=== PATIENT | male | born 1955 | race Caucasian/White ===

== ENCOUNTER 2016-05-16 03:53 | Inpatient (IN) | payer OTHER ==
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
--- NOTE | ~2016-05-16 | EKG ---
PATIENT: FATUMA BALL UNIT #: [id number] Ventricular Rate: 75 BPM Atrial Rate: 75 BPM P-R Interval: 198 ms QRS Duration: 90 ms Q-T Interval: 426 ms QTC Calculation(Bezet): 475 ms P Mobile: 76 degrees Calculated R Mobile: 49 degrees Calculated T Mobile: 37 degrees Diagnosis Line: Normal sinus rhythm Diagnosis Line: Nonspecific T wave abnormality Diagnosis Line: Abnormal ECG Diagnosis Line: When compared with ECG of 16-MAY-2016 03:28, Diagnosis Line: (unconfirmed) Diagnosis Line: No significant change was found Diagnosis Line: Confirmed by PAYAM NGUYEN MD ([id number]) on 05/16/2016 Diagnosis Line: 5:23:44 PM INTERPRETING MD: PATRICK ANAYA
--- NOTE | ~2016-05-16 | CR72 ---
[facility] A Service of [facility] & [facility] RADIOLOGY TEXT RESULTS PATIENT: FATUMA BALL LOCATION: [facility] 548-01 : 55 UNIT #: [id number] AGE: [address]: Henrique Mcallister MD SEX: M ORDER DR: [id number] [facility] [address]. [place], [place] [address] [id number] I MR#: [id number] Acc #: [id number] NAME: FATUMA BALL : 1955 SEX: M STUDY DATE/TIME: 05/16/2016 3:24 UNIT: [facility] ROOM: 68111 STUDY DESCRIPTION: CR Chest Single View Portable Attending Physician: Henrique Mcallister M.D. Ordering Physician: Cosme Roberto D.O. Primary Care Physician: No Primary Care Physician MEDICAL IMAGING REPORT This report is preliminary unless electronic signature is present EXAM Portable chest 05/16/2016 at 03:35 hours. INDICATIONS Headache and shortness of air that started 3 days ago. TECHNIQUE AP portable chest. COMPARISON 01/11/2016. FINDINGS Cardiomegaly stable. Vascularity normal. Lungs are clear. No pneumothorax. IMPRESSION Stable cardiomegaly. No active disease. Dictated by... Levy Alcantara Jr., M.D. THIS IS AN ELECTRONICALLY VERIFIED REPORT Levy Alcantara Jr., M.D. at 05/19/2016 7:20 AM RLK/tung TD: 05/16/2016 08:25 JOB #: [id number] MEDICAL IMAGING REPORT COPY
--- NOTE | ~2016-05-16 | CR72 ---
[facility] A Service of [facility] & [facility] RADIOLOGY TEXT RESULTS PATIENT: FATUMA BALL LOCATION: [facility] 548-01 : 55 UNIT #: [id number] AGE: [address]: Henrique Mcallister MD SEX: M ORDER DR: [id number] [facility] [address] [facility] [place] [facility]. [place], [place] [address] [id number] I MR#: [id number] Acc #: [id number] NAME: FATUMA BALL : 1955 SEX: M STUDY DATE/TIME: 05/18/2016 5:28 UNIT: [facility] ROOM: [facility] STUDY DESCRIPTION: CR Chest Single View Portable Attending Physician: Henrique Mcallister M.D. Ordering Physician: Henrique Mcallister M.D. Primary Care Physician: Primary Care Physician No MEDICAL IMAGING REPORT This report is preliminary unless electronic signature is present EXAM AP portable chest 05/18/2016 HISTORY 61-year-old male status post hospital admission 05/16/2016 complaining of 2-day history of shortness of air, cough and body aches. Follow up cardiopulmonary status. TECHNIQUE AP portable chest x-ray. FINDINGS Exam shows no active disease in the chest. Minimal cardiomegaly stable. Pulmonary vascularity is normal. The lungs are clear. No pleural effusion. No change since 05/16/2016. IMPRESSION No active disease. Dictated by... Fransisco Barboza M.D. THIS IS AN ELECTRONICALLY VERIFIED REPORT Fransisco Barboza M.D. at 05/18/2016 3:06 PM PATIENCE/isidro TD: 05/18/2016 12:19 JOB #: [id number] MEDICAL IMAGING REPORT COPY
--- NOTE | ~2016-05-16 | CO ---
Unit #: [id number] #: [id number] Patient: FATUMA BALL [id number] [facility] [address] [facility] [place], [place] [address] [id number] MR#: [id number] NAME: FATUMA BALL ROOM: 548 Age: 61 Sex: M Admission Date: 05/16/2016 : 1955 Attending Physician: Henrique Mcallister M.D. CONSULTATION REPORT REASON FOR CONSULTATION Ischemic cardiomyopathy and a known patient of Dr. Vasquez. HISTORY OF PRESENT ILLNESS This is a 60-year-old male who follows with Dr. Vasquez and last seen in office on 05/02/2016 and presented to the [facility] ER where he was seen and examined with worsening shortness of breath and a cough, headache, and joint pain, and reports this has been going on for 3 days. PAST MEDICAL HISTORY Nonischemic cardiomyopathy with chronic systolic heart failure with EF of 15%, chronic kidney disease, diabetes, COPD, tobacco abuse, asthma, hypotension, and some PVCs. He reports he has decreased his smoking from 2 to 2-1/2 packs a day down to 2 to 3 cigarettes for the last month to month and a half. Previous cardiac testing includes an echo on 12/27/2015, which showed an EF of 15%, mild to moderate MR and TR, moderately reduced RV function, and mild dilated left atrium, and moderately enlarged right atrium and an RVSP of 38 mmHg. He had a left heart cath on 01/01/2016, which showed normal left main, normal LAD, normal left circ with a mid RCA lesion of about 50%. Chest x-ray on 05/16/2016 was done and also an EKG on 05/16/2016 showed normal sinus rhythm. He does complain of chronic increased coughing, which is mostly dry in nature. He has orthopnea. Apparently, he reports to me that he does take all his medicines as prescribed. However, upon review of the last office note, it seems like he was supposed to be on a baby aspirin and lisinopril and he is not on either of those. He reports that he does have chest pain to his upper epigastric area through the center underneath has sternal bone, but this has made worse with coughing and is reproducible. Also has joint pain to all of his joints and pain to his flank area when he coughs. He says he absolutely cannot lay down flat because he will just start coughing. Coughing makes all his pain worse to his joints, flank area, and his chest and he says he tried steam and that actually made better. HOME MEDICATIONS Include spironolactone 12.5 mg p.o. daily, Lasix 20 mg daily, Coreg 25 b.i.d., hydralazine 25 b.i.d., and Imdur 30 mg daily. SOCIAL HISTORY He lives with his nephew. He has applied for permanent and total disability. He continues to smoke, but he said he has cut down. He used Unit #: [id number] #: [id number] Patient: FATUMA BALL to smoke 2 to 2-1/2 packs a day and now over the last month to month and half, he tells me he only smokes 2 to 3 cigarettes a day. Apparently, he denies illicit drug use and any alcohol use, but there is upon chart review a history of some alcohol abuse. ALLERGIES Include penicillin. FAMILY HISTORY For hypertension and diabetes. REVIEW OF SYSTEMS Over the last 3 days, he has had worsening shortness of breath. He has had a cough, which is mostly dry and he has chest pain with coughing, but denies lower extremity edema. Does report orthopnea mostly because when he lays flat, he tells me his cough increases. His shortness of breath is worse especially with exertion. He denies any nausea, vomiting, diarrhea. Denies any diaphoresis. Denies palpitations. Does report a headache, but denies dizziness. He reports joint pain to all his joints, which is made worse with coughing. PHYSICAL EXAMINATION VITAL SIGNS: Temperature 98.0, heart rate is 70, respirations 13, he is 98% on room air, his blood pressure was 136/78 and at the time of interview this morning, it was 153/92. GENERAL: He generally appears well nourished, well developed. He is awake, alert, and oriented x3. He is a 60-year-old male and appears his stated age. NECK: Supple with no JVD and no bruits noted. LUNGS: Clear. He has no low respiratory effort and mild congestion, which is cleared after coughing. CARDIOVASCULAR: He is in a regular rate and rhythm. S1, S2. Distant heart sounds were noted. ABDOMEN: Slightly distended, but soft. He has positive bowel sounds and he is nontender. He has no hepatojugular reflux noted. EXTREMITIES: Negative for any edema and he does have positive pedal pulses. DIAGNOSTIC STUDIES IMAGING STUDIES: Today included a chest x-ray on 05/16/2016 showed stable cardiomegaly. No active disease. CARDIOVASCULAR STUDIES: EKG on 05/16/2016 showed normal sinus rhythm, rate of 75 beats per minute, and QTc was 475 msec. He did have some nonspecific T-wave abnormality seen in his EKG, but no ST segment elevation or depression. LABORATORY RESULTS: Sodium 142, potassium 4.0, chloride 107, CO2 of 28, BUN is 18, creatinine 1.3, glucose 101. BNP was 78. AST 28, ALT is 32. PT is 10.3, INR is 1.0. Troponins have been less than 0.05 x2. Fasting lipid panel is still pending. WBC is 7.8, hemoglobin 13.5, hematocrit 41.6, and platelets 141. IMPRESSION 1. Acute exacerbation of chronic obstructive pulmonary disease. 2. Nonischemic cardiomyopathy, last ejection fraction on echo was 15%. 3. Chronic systolic heart failure, however, he does not appear to be in volume overloaded. His BNP is 78. Unit #: [id number] #: [id number] Patient: FATUMA BALL 4. Diabetes. 5. Coronary artery disease, history of mid right coronary artery lesion of 50%. 6. Tobacco abuse. 7. Chronic kidney disease. 8. History of noncompliance with medications and history of reformed alcohol abuse. PLAN Cardiology was asked to see him for CHF management. He has acute exacerbation of COPD and bronchitis and severe LV dysfunction. His EF is 15%. We will start him on aspirin. I have asked the home care manager rn to check the cost of Entresto. However, he is on [employer] and it does not cover Entresto. He will continue beta-blockers, diuretics, and afterload reduction. No SALIMA at this time as he has history of chronic kidney disease. Lipids are pending. Previous 2D echo, which was written has been canceled per Dr. Vasquez. The patient is otherwise stable. For nonischemic cardiomyopathy, he will likely need an AICD sometime in the near future after the 90 day period. Smoking cessation was encouraged. Thank you for this consult. Dictated by.Cornel. Katharina Ureña APRN for Abel Pelayo TD: 05/17/2016 00:15 JOB #: [id number] CONSULTATION REPORT X X CONSULTATION REPORT
--- NOTE | ~2016-05-16 | DS ---
Unit #: [id number] #: [id number] Patient: FATUMA BALL [id number] [address] [address] [id number] I MR#: [id number] NAME: FATUMA ABLL ROOM: 548 Age: 61 Sex: M Admission Date: 05/16/2016 : 1955 Discharge Date: 05/18/2016 Attending Physician: Henrique Mcallister M.D. Primary Care Physician: Kiki Primary Care Physician DISCHARGE SUMMARY PRINCIPAL DISCHARGE DIAGNOSES 1. Acute exacerbation of chronic obstructive pulmonary disease. 2. Acute on chronic systolic heart failure. 3. Acute hypoxic respiratory failure. SECONDARY DIAGNOSES 1. Hypertension. 2. Dyslipidemia. 3. Tobacco smoking. CONSULTANTS Dr. Vasquez from cardiology. DISCHARGE MEDICATIONS 1. Furosemide 20 mg p.o. daily. 2. Albuterol inhaler 2 puffs q.4 h. p.r.n. shortness of breath. 3. Albuterol nebulizer t.i.d. for the next 2 days and then t.i.d. p.r.n. for shortness of breath. 4. Lipitor 20 mg p.o. at nighttime. 5. Prednisone 40 mg p.o. daily for 5 days. 6. Levofloxacin 500 mg p.o. daily for 5 days. 7. Spironolactone 12.5 mg p.o. daily. 8. Aspirin 81 mg p.o. daily. 9. Hydralazine 25 mg p.o. b.i.d. 10. Coreg 25 mg p.o. b.i.d. HISTORY OF PRESENT ILLNESS/BRIEF HOSPITAL COURSE Mr. Ball is a 61-year-old male with a past medical history of hypertension, chronic obstructive pulmonary disease and chronic smoking, who presented to the emergency room with cough and shortness of breath. A chest x-ray in the emergency room was nonrevealing, and the patient was noted to have a significant amount of wheezes on exam. The patient was hypoxic in the emergency room. He was admitted to the hospital and started on oxygen supplementation as well as albuterol and ipratropium breathing treatments and steroids. Given his history of heart failure, cardiology was consulted. A two-dimensional echo was repeated and reported an ejection fraction of approximately 45%, which was significantly improved when compared to the previous 2-D echo that revealed an ejection fraction of 15%. The patient was started on Lasix and continued on beta blockers and spironolactone. Plans were to start the patient on Entresto for his heart failure. Over the course of the hospitalization the patient's symptoms improved significantly. He particularly seemed to respond to the breathing treatments. Today the patient's auscultation is almost clear, he is breathing better and oxygen Unit #: [id number] #: [id number] Patient: FATUMA BALL saturation remains above 92% when he ambulates on room air. The patient is considered to be stable now to be discharged home with close followup as an outpatient. DISCHARGE CONDITION Improved. DISPOSITION Home. FOLLOWUP 1. The patient is to follow up with cardiology in five to six weeks. 2. Information was provided to the patient to arrange a follow-up appointment with primary care physician through [employer] within the next couple of weeks. Dictated by... Abel Gilmore TD: 05/20/2016 10:33 JOB #: [id number] DISCHARGE SUMMARY X X DISCHARGE SUMMARY
--- NOTE | ~2016-05-16 | HP ---
Unit #: [id number] #: [id number] Patient: FATUMA BALL [id number] [address] [address] [id number] MR#: [id number] NAME: FATUMA BALL ROOM: 49259 Age: 60 Sex: M Admission Date: 05/16/2016 : 1955 Attending Physician: Henrique Mcallister M.D. Primary Care Physician: No Primary Care Physician HISTORY AND PHYSICAL CHIEF COMPLAINT Cough and shortness of breath. HISTORY OF PRESENTING ILLNESS The patient is a 60-year-old -Iranian gentleman with a past medical history of hypertension, history of congestive heart failure, COPD, smoking, who presented to the emergency room with a chief complaint of cough and shortness of breath. He mentions that he is coughing up greenish sputum initially and this (1) up. He complains of generalized body aches. No sick contacts. The patient complains of having fevers. He also complains of having headaches and, after repeated episodes of cough, having chest pains. He did not get his flu vaccine this year. In the emergency room, in initial workup, he was noted to have COPD exacerbation, started on steroids and getting admitted for further management. He denies having any abdominal pain, diarrhea, dysuria. He denies having any swelling of his feet. He denies any change in his medications recently. PAST MEDICAL HISTORY History of congestive heart failure, hypertension, history of COPD. SOCIAL HISTORY He works in construction. He smokes half a pack a day. The patient denies alcohol regularly. He mentions he drinks socially. He denies using any illicit drugs. FAMILY HISTORY He mentions his youngest sister has heart problems and COPD. ALLERGIES Penicillin. HOME MEDICATIONS 1. Spironolactone 12.5 mg p.o. daily. 2. Lasix 40 mg p.o. daily half a tablet. 3. Coreg 25 mcg twice a day. 4. Hydralazine 25 mg twice a day. 5. Imdur 30 mg p.o. daily. REVIEW OF SYSTEMS Complete review of systems done and negative except for what is mentioned in HPI. Unit #: [id number] #: [id number] Patient: FATUMA BALL PHYSICAL EXAMINATION GENERAL APPEARNCE: The patient is alert, oriented x3, lying in the bed in no acute distress. VITAL SIGNS: Temperature 98. Pulse (2) . Respiratory rate 16. Blood pressure 144/76. HEENT: Normocephalic, atraumatic. No icterus. PERRLA. Extraocular muscles are intact. NECK: Supple. No JVD. HEART: S1, S2. Regular rate and rhythm. CHEST: Bilateral equal air entry. Wheeze present. ABDOMEN: Soft, nontender. EXTREMITIES: No edema. Normal pulses. DIAGNOSTIC STUDIES LABORATORY: Glucose 101, BUN 18, creatinine 1.3, sodium 142, potassium 4, chloride 107, bicarb 28, LDL 128, cholesterol 194, triglycerides 65. WBC 7.8, hemoglobin 13.5, platelet count 741. Influenza swab negative. ASSESSMENT AND PLAN 1. Shortness of breath secondary to acute hypoxic respiratory failure with hypoxemia secondary to COPD exacerbation with possible superimposed bronchitis. We will start the patient on steroids. We will start him on antimicrobials to include Rocephin and Zithromax. I counseled him to quit smoking. We will try to get flu vaccine at the time of discharge. I will also check a respiratory pathogen panel to evaluate for any other viral etiology. 2. Chest pains, atypical in nature, possibly secondary to repeated coughing. Two sets of cardiac enzymes are negative. We will go from Cardiology input. 3. Hypertension. We will titrate his blood pressure medications and monitor. 4. Hyperlipidemia. We will start him on statin. He was not taking any stating at home and his LDL is 128. 5. DVT precautions. 6. Smoking. Counseled to quit. 7. Further recommendations per hospital course. Dictated by Abel Parker TD: 05/16/2016 11:55 JOB #: [id number] HISTORY AND PHYSICAL X X HISTORY AND PHYSICAL
[~2016-05-16 03:53] MED LIST: ALBUTEROL17 GM INH; ALDACTONE25 MG PO; ASPIRIN81 MG PO; COREG3.125 M1 PO; FUROSEMIDE40 MG PO; LISINOPRIL2.5 MG PO
[2016-05-16 03:59] LABS: POC - CKMB 1.2 ng/mL (0.0-7.9); POC - TROPONIN <0.05 ng/mL (<=0.05)
[2016-05-16 04:00] LABS: BASOPHIL% 0.6 % (0-2.5); EOSINOPHIL# 0.5 X10e3 (0-0.7); EOSINOPHIL% 6.6 % (0.0-7.0); HEMATOCRIT 41.6 % (38.0-50.0); HEMOGLOBIN 13.5 gm/dL (13.0-16.0); LYMPHOCYTE# 3.1 X10e3 (1.0-3.5); LYMPHOCYTE% 40.5 % (17.0-45.0); MEAN CELL VOLUME 89.7 FL (83-96); MEAN CORPUSCULAR HEMOGLOBIN 29.2 PG (28-34); MEAN CORPUSCULAR HGB CONC 32.5 g/dL (30-36); MEAN PLATELET VOLUME 9.5 FL (6.5-11.5); MONOCYTE# 0.6 X10e3 (0-1.0); MONOCYTE% 8.1 % (3.0-12.0); NEUTROPHIL# 3.4 X10e3 (1.5-7.1); NEUTROPHIL% 44.2 % (40-75); PLATELET COUNT 141 X10e3 (140-420); RED BLOOD COUNT 4.64 X10e (3.90-5.60); RED CELL DISTRIBUTION WIDTH 13.4 % (11.0-15.5); WHITE BLOOD COUNT 7.8 X10e3 (4.0-10.5)
[2016-05-16 04:02] LABS: DIFF IND NO
[2016-05-16 04:07] LABS: PARTIAL THROMBOPLASTIN TIME 30.5 SECONDS (23.5-31.3); PROTHROMBIN TIME (PATIENT) 10.3 SECONDS (9.6-11.5)
[2016-05-16 04:14] LABS: ALBUMIN SERUM 3.8 g/dL (3.5-5.0); BILIRUBIN, DIRECT 0.1 mg/dL (0.0-0.2); BILIRUBIN,INDIRECT 0.4 mg/dL (0.0-0.9); BILIRUBIN,TOTAL 0.5 mg/dL (0.2-2.0); BUN/CREATININE RATIO 13.84; CALCIUM SERUM 8.8 mg/dL (8.4-10.2); CREATININE SERUM 1.3 mg/dL (0.6-1.4); GLOM FILT RATE Estimated 59.8 mL/min (>60); PROTEIN TOTAL SERUM 7.2 g/dL (6.0-8.3)
[2016-05-16 04:16] LABS: INFLUENZA A NEG (NEG); INFLUENZA B NEG (NEG)
[2016-05-16 05:32] LABS: POC - CKMB 1.2 ng/mL (0.0-7.9); POC - TROPONIN <0.05 ng/mL (<=0.05)
[2016-05-16] MEDS ORDERED: CARVEDILOL25 MG PO (06:47)
[2016-05-16] MEDS ORDERED: HYDRALAZINE HCL25 MG PO (06:47)
[2016-05-16] MEDS ORDERED: IMDUR-ER30 M1 PO (06:48)
[2016-05-16 09:26] LABS: %MB 1.4 % (0.0-4.0); MB 2.2 ng/ml
[2016-05-17 05:27] LABS: BASOPHIL% 0.1 % (0-2.5); HEMATOCRIT 40.5 % (38.0-50.0); HEMOGLOBIN 13.1 gm/dL (13.0-16.0); LYMPHOCYTE# 0.8 X10e3 (1.0-3.5); LYMPHOCYTE% 5.2 % (17.0-45.0); MEAN CELL VOLUME 89.1 FL (83-96); MEAN CORPUSCULAR HEMOGLOBIN 28.8 PG (28-34); MEAN CORPUSCULAR HGB CONC 32.3 g/dL (30-36); MONOCYTE# 0.3 X10e3 (0-1.0); MONOCYTE% 2.1 % (3.0-12.0); NEUTROPHIL# 14.5 X10e3 (1.5-7.1); NEUTROPHIL% 92.6 % (40-75); PLATELET COUNT 148 X10e3 (140-420); RED BLOOD COUNT 4.55 X10e (3.90-5.60); RED CELL DISTRIBUTION WIDTH 13.7 % (11.0-15.5)
[2016-05-17 05:28] LABS: DIFF IND YES; WHITE BLOOD COUNT 15.6 X10e3 (4.0-10.5)
[2016-05-17 05:48] LABS: BUN/CREATININE RATIO 16.92; CREATININE SERUM 1.3 mg/dL (0.6-1.4); GLOM FILT RATE Estimated 59.6 mL/min (>60); POTASSIUM 4.6 mmol/L (3.5-5.1)
[2016-05-17 05:57] LABS: ANISOCYTOSIS SL; PLATELET ESTIMATE NORMAL (NORMAL); POIKILOCYTOSIS SL
[2016-05-18 05:36] LABS: HEMATOCRIT 39.6 % (38.0-50.0); HEMOGLOBIN 13.2 gm/dL (13.0-16.0); MEAN CELL VOLUME 89.4 FL (83-96); MEAN CORPUSCULAR HEMOGLOBIN 29.8 PG (28-34); MEAN CORPUSCULAR HGB CONC 33.3 g/dL (30-36); MEAN PLATELET VOLUME 10.4 FL (6.5-11.5); RED BLOOD COUNT 4.43 X10e (3.90-5.60); RED CELL DISTRIBUTION WIDTH 13.4 % (11.0-15.5); WHITE BLOOD COUNT 21.1 X10e3 (4.0-10.5)
[2016-05-18 06:23] LABS: BLOOD UREA NITROGEN 24 mg/dL (9-23); CALCIUM SERUM 9.1 mg/dL (8.4-10.2); CARBON DIOXIDE 29 mmol/L (22-31); CHLORIDE 103 mmol/L (100-111); CREATININE SERUM 1.2 mg/dL (0.6-1.4); GLOM FILT RATE Estimated ABOVE60 mL/min (>60); GLUCOSE FASTING 157 mg/dL (70-110); MAGNESIUM 2.4 mg/dL (1.6-3.0); POTASSIUM 4.6 mmol/L (3.5-5.1); SODIUM 139 mmol/L (135-145)
[2016-05-18] MEDS ORDERED: ASPIRIN81 MG PO (17:35)
[2016-05-18] MEDS ORDERED: DELTASONE20 MG PO (17:36)
[2016-05-18] MEDS ORDERED: LEVAQUIN PO (17:37)
[2016-05-18] MEDS ORDERED: ALBUTEROL17 GM INH (17:38)
[2016-05-18] MEDS ORDERED: ALBUTEROL NEB (17:40)
[2016-05-18] MEDS ORDERED: LASIX20 MG PO (17:41)
== END 2016-05-18 18:41 | disposition home or self-care (01) | DRG 291 ==
LOC: CED 03:53 → CEDOF 06:27 → C5B 17:22
PROVIDERS: Emergency Medicine; Internal Medicine; Nurse Practitioner
PROC: B24BYZZ Ultrasonography of Heart with Aorta using Other Contrast (ICD-10-PCS; principal; 2016-05-16)
DX: I13.0 Hypertensive heart and chronic kidney disease with heart failure and stage 1 through stage 4 chronic kidney disease, or unspecified chronic kidney disease (principal); J96.01 Acute respiratory failure with hypoxia; I50.23 Acute on chronic systolic (congestive) heart failure; J44.0 Chronic obstructive pulmonary disease with (acute) lower respiratory infection; J44.1 Chronic obstructive pulmonary disease with (acute) exacerbation; J44.9 Chronic obstructive pulmonary disease, unspecified; I08.1 Rheumatic disorders of both mitral and tricuspid valves; F17.210 Nicotine dependence, cigarettes, uncomplicated; Z88.0 Allergy status to penicillin; R07.89 Other chest pain; E78.5 Hyperlipidemia, unspecified; Z71.6 Tobacco abuse counseling; N18.9 Chronic kidney disease, unspecified; Z91.14 Patient's other noncompliance with medication regimen; F10.21 Alcohol dependence, in remission; J20.9 Acute bronchitis, unspecified; I42.8 Other cardiomyopathies
CPT/HCPCS: 36415; 70450; 71010; 80048; 80061; 80076; 82550; 82553; 82947; 83036; 83735; 83880; 84484; 85025; 85027; 85610; 85730; 87804; 93005; 93306; 94640; 94760; 96374; 99285; J0696; J1650; J1815; J1885; J2920; J2930

== ENCOUNTER 2016-07-16 09:38 | Inpatient (IN) | payer OTHER ==
--- NOTE | ~2016-07-16 | DS ---
Unit #: [id number] #: [id number] Patient: FATUMA BALL [id number] [address] [address] [id number] I MR#: [id number] NAME: FATUMA BALL ROOM: CIC2 Age: 61 Sex: M Admission Date: 07/16/2016 : 1955 Discharge Date: 07/20/2016 Attending Physician: Nata Knight M.D. Primary Care Physician: No Primary Care Physician DISCHARGE SUMMARY REASON FOR ADMISSION Status post resuscitated arrest. Please see history and physical for complete details. HOSPITAL COURSE The patient was admitted with the above. He was resuscitated times two en route. He was placed in the ICU. Consultations were placed to pulmonary services, cardiology services as well as neurology services, Drs. Eason, Rose/Christina, as well as Dr. Pham respectively. Through his hospital course he was noted to have significant anoxic encephalopathy. He did not withdraw to pain. He had a minimal gag reflex. He received no sedation. He was minimally responsive. He was appropriately treated with supportive care over the next 72 hours. He did not have any appreciable response. His pupils were initially fixed. Later on his pupils rolled to the superior position. He did not follow any form of neurological commands. In consideration of the patient's prior wishes, as well as discussion with the patient's nephew with whom he resides, his sister as well as other numerous family members who were present at bedside, all parties stated that the patient would have never wanted to remain in this persisted state. They asked for withdrawal of care to allow him to pass away. In accordance with their wishes, the patient will be made comfort care only at this point in time. CURRENT CLINICAL DIAGNOSES 1. Acute hypoxic respiratory failure. 2. Anoxic encephalopathy with abnormal CT findings. 3. Status post resuscitated arrest times two. 4. Ischemic cardiomyopathy. 5. Acute kidney injury. 6. Respiratory acidosis. 7. Probable aspiration pneumonia. PLAN Comfort care measures only. All constitution party members, including family members present are in agreement. The patient's overall prognosis is dismal/poor. Dictated by... Unit #: [id number] #: [id number] Patient: FATUMA BALL ImrAbel Nice/tung TD: 07/21/2016 09:02 JOB #: [id number] DISCHARGE SUMMARY Page 1 of 1 X Nata Knight MD X DISCHARGE SUMMARY
--- NOTE | ~2016-07-16 | CR72 ---
[facility] A Service of [facility] RADIOLOGY TEXT RESULTS PATIENT: FATUMA BALL LOCATION: [address] : [birth year] UNIT #: [id number] AGE: [address]: Nata Knight MD SEX: M ORDER DR: [id number] [facility] [address] [facility] [place], [place] [address] [id number] I MR#: [id number] Acc #: [id number] NAME: FATUMA BALL : 1955 SEX: M STUDY DATE/TIME: 07/17/2016 5:42 UNIT: [facility] ROOM: [facility] STUDY DESCRIPTION: CR Chest Single View Portable Attending Physician: Levy Daley M.D. Ordering Physician: Jesus Vasquez M.D. Primary Care Physician: Primary Care Physician No MEDICAL IMAGING REPORT This report is preliminary unless electronic signature is present EXAM Portable chest 1 view 07/17/2016 COMPARISON 07/16/2016. HISTORY Short of air requiring intubation. Symptoms since 07/16/2016. FINDINGS ET tube remains in place tip 5 cm above the madai. Right IJ central line present tip mid SVC. No consolidation, effusion or pneumothorax. Dictated by... Zeke Jones M.D. THIS IS AN ELECTRONICALLY VERIFIED REPORT Zeke Jones M.D. at 07/17/2016 3:49 PM TEV/yahaira TD: 07/17/2016 07:17 JOB #: [id number] MEDICAL IMAGING REPORT Page 1 of 1 COPY
--- NOTE | ~2016-07-16 | CO ---
Unit #: [id number] #: [id number] Patient: FATUMA BALL [id number] [facility] [address] [facility]. [place], [place] [address] [id number] MR#: [id number] NAME: FATUMA BALL ROOM: CICCU2 Age: 61 Sex: M Admission Date: 07/16/2016 : 1955 Attending Physician: Nata Knight M.D. Primary Care Physician: Primary Care Physician No Consultation Date: 07/18/2016 CONSULTATION REPORT PRIMARY CARE PHYSICIAN Not listed. REASON FOR CONSULTATION Altered mental status, status post arrest. PATIENT IDENTIFICATION This is a 61-year-old, male, evaluated in ICU room [address] [facility]. SOURCE OF INFORMATION Obtained from the family as well as medical record and nursing staff. HISTORY OF PRESENT ILLNESS This is a 61-year-old, male with a past medical history of COPD, congestive heart failure, CKD, diabetes mellitus type 2, hyperlipidemia and tobacco use, who presents to [facility] after resuscitated arrest. The patient apparently lives with his nephew and had gone outside for about 20 minutes and after not coming back inside after 20 minutes, either his nephew or someone else went out and found the patient unresponsive. 911 was called and bystander CPR was initiated. Upon EMS arrival, CPR was continued and there was return of spontaneous circulation after about 40 minutes and the patient did receive one shock, a total of 5 mg of epinephrine, 2 mg of Narcan and an amp of D50 as well as an amp of sodium bicarb and 300 mg of amiodarone prior to arrival. He was put on hypothermia protocol here and has been fully rewarmed as of this morning, and has been taken off sedation. Neurology was asked to further evaluate given patient's continued altered mental status and poor response. He had an initial CT scan done on 07/16/2016 that was motion degraded and did not show a definite acute abnormality, but had suboptimal visualization of the morrison white differentiation, though given the motion degradation, it was not clear whether the suboptimal visualization may have been due to motion degradation alone. No definite findings of acute abnormality were noted and no change in ventricle volume or the basilar cistern since the study of 05/16/2016. He did undergo CT of the head without contrast today that shows loss of morrison-white matter differentiation, consistent with anoxic brain injury. Full dictated report is pending. Voice clip per neurology noted. Imaging reviewed with Dr. Pham and discussed with him. The patient was admitted for resuscitated arrest, chest pain, congestive heart failure, possible aspiration pneumonia, and possible sepsis. His white count was 26.4 on arrival with 15% bands. He is also noted to have thrombocytopenia and uncontrolled diabetes with a glucose of 306 on arrival. Unit #: [id number] #: [id number] Patient: FATUMA BALL PAST MEDICAL HISTORY 1. Admission to [facility] on 05/16/2016 through 05/18/2016 for COPD exacerbation. The patient's ejection fraction per the discharge summary was 45%. 2. Congestive heart failure. He is followed by [facility]. 3. COPD. 4. Tobacco use. 5. Hypertension. 6. Hyperlipidemia. 7. Diabetes mellitus, type 2. 8. CKD. FAMILY HISTORY Noncontributory to the presenting condition. SOCIAL HISTORY The patient lives with his nephew. He uses tobacco and he drinks. He has a history of heavy alcohol abuse, but is not currently reported to drink. He is independent at baseline. He works in construction. No known illicit drug use. Urine tox screen is unremarkable. ALLERGIES Penicillin. HOME MEDICATIONS Include hydrochlorothiazide, Coreg, Lasix, albuterol, Ventolin. REVIEW OF SYSTEMS Unable to obtain from the patient given his mental status and intubation. PHYSICAL EXAMINATION VITAL SIGNS: Temperature 97.5, pulse 90, respirations 21, blood pressure 187/81, oxygen saturation 100%. Height 6 feet 1 inch, weight 292 pounds. NEUROLOGIC: The patient is intubated. He is not currently sedated, although he was on continuous sedation up until about 5:00 a.m. this morning. He was on hypothermia protocol and was fully rewarmed about 5:00 a.m. this morning per nursing staff. On evaluation, he is not responsive to noxious stimuli, initially did not appear to have any corneals, but does exhibit corneals currently. He appears to have myoclonus that becomes more frequent with stimulation. He is rigid. His eyes are upward gaze. No roving eye movements. Pupils are nonreactive. Appears to have negative doll's eyes. Again, no response to noxious stimuli. Cranial nerve exam; unable to evaluate d[place] of vision. Again, eyes are as discussed above. Unable to evaluate sensation of face and scalp or strength of the facial expression. Unable to evaluate hearing, tongue, uvula or palate, head turning or shoulder shrug. Again, he is quite rigid all over. Motor exam, no response to noxious stimuli. Sensory exam, no response to noxious stimuli. Throughout evaluation, as he has more stimulation, he begins to have more myoclonus that appears to be bilateral. Coordination, unable to assess. DIAGNOSTIC STUDIES IMAGING STUDIES: Please see above. Chest x-ray on 07/18/2016, stable, unchanged since yesterday. Support Unit #: [id number] #: [id number] Patient: FATUMA BALL equipment in good position per Radiology report. LABORATORY RESULTS: Sodium 138, potassium 3.6, chloride 106, CO2 of 24, glucose 138, BUN 28, creatinine 2.4, estimated GFR 28.1, calcium 8.2, phosphorus 4.4, magnesium 2.1. CK total 201, PT 10.9, INR 1.0. White blood cell count 21.8, hemoglobin 13.9, hematocrit 43.4, and platelet count 107. Urine culture final; no growth after 48 hours. Blood cultures preliminary, no growth after 24 hours x2 sets. Lactic acid 1.5, BNP 168. Urine drug screen unremarkable. IMPRESSION 1. Anoxic encephalopathy. CT findings are concerning including clinical exam. 2. Status post resuscitated arrest/sudden cardiac . Cardiology following. 3. Acute respiratory failure. 4. Nonischemic cardiomyopathy. 5. Myoclonus, seen initially with stimulation, worsening throughout exam/rigidity. PLAN Prognosis is definitely concerning given his exam and CT findings and concerning for severe anoxic brain injury, especially when in comparison to prior CT scans. Dr. Pham has seen the patient as well and started the patient on Keppra as well as Vimpat and also on Ativan. Please see his orders. We discussed with his brother and sister at length. Very concerned about his evaluation and CT scan; however, given his rigidity, stiffness, and eyes rolled back, we will treat him on antiepileptics for now and re-evaluate tomorrow. Tomorrow will be 72 hours after the event and we will decide further course of action from there. Family is very aware of concerns about his prognosis and we will discuss with Dr. Pham tomorrow upon followup and re-evaluation. Please call for any questions or issues. We thank you very much for allowing us to assist in the care of this patient. Dictated by... Alva Spear A.P.R.N. for Abel Tavares/yaneth TD: 07/19/2016 04:37 JOB #: [id number] CONSULTATION REPORT Page 1 of 1 X Alva Spear [employer] X CONSULTATION REPORT
--- NOTE | ~2016-07-16 | CT71 ---
[facility] A Service of [facility] RADIOLOGY TEXT RESULTS PATIENT: FATUMA BALL LOCATION: [address] : [birth year] UNIT #: [id number] AGE: [address]: Nata Knight MD SEX: M ORDER DR: [id number] [facility] [address] [facility]. [place], [place] [address] [id number] MR#: [id number] Acc #: [id number] NAME: FATUMA BALL : 1955 SEX: M STUDY DATE/TIME: 07/16/2016 16:24 UNIT: [id number] ROOM: [facility] STUDY DESCRIPTION: CT Head Wo Contrast Attending Physician: Levy Daley M.D. Ordering Physician: Josefina Walker M.D. MEDICAL IMAGING REPORT This report is preliminary unless electronic signature is present EXAM Head CT, no contrast, 07/16/2016 COMPARISON STUDIES Prior PET/CT 05/16/[address] This CT exam was performed with one or more of the following radiation dose reduction techniques: automatic exposure control, adjustment of mA and/or kV according to patient size, and iterative reconstruction. HISTORY Found unresponsive today after presumed cardiac arrest. FINDINGS There is mild motion degradation. There is no intracranial hemorrhage. There is no hydrocephalus or extra-axial fluid collection. There is no definite acute abnormality. Ventricle volume is unchanged since CT of 05/16. Graham-white differentiation is poor overall but that is often related to a motion-degraded exam, as there is some graham differentiation visible. IMPRESSION Motion-degraded. No definite acute abnormality. Suboptimal visualization of the graham-white differentiation, though that can be simply a product of motion-degraded exam alone. No definite findings of acute abnormality and there has been no change in ventricle volume or the basilar cisterns since the study of 05/16/2016. [facility] A Service of [facility] RADIOLOGY TEXT RESULTS PATIENT: FATUAM BALL LOCATION: [address] : [birth year] UNIT #: [id number] AGE: [address]: Nata Knight MD SEX: M ORDER DR: Dictated by... Zeke Jnoes M.D. THIS IS AN ELECTRONICALLY VERIFIED REPORT Zeke Jones M.D. at 07/17/2016 3:54 PM TEV/pcl TD: 07/16/2016 19:00 JOB #: [id number] MEDICAL IMAGING REPORT Page 1 of 1 COPY
--- NOTE | ~2016-07-16 | HP ---
Unit #: [id number] #: [id number] Patient: FATUMA BALL [id number] [place], [place] [address] [id number] I MR#: [id number] NAME: FATUMA BALL ROOM: 43657 Age: 61 Sex: M Admission Date: 07/16/2016 : 1955 Attending Physician: Levy Daley M.D. Primary Care Physician: No Primary Care Physician HISTORY AND PHYSICAL CHIEF COMPLAINT Resuscitated arrest. HISTORY OF PRESENT ILLNESS The patient is a 61-year-old male with a past medical history of congestive heart failure, chronic obstructive pulmonary disease, diabetes and chronic kidney disease, who presented to the emergency department for evaluation of the above. History is obtained from chart review and discussion with the emergency room staff, as well as from the patient's family (niece and aunt who are at the bedside). The patient apparently lives with his nephew. He had gone outside for about 20 minutes and was found unresponsive, 911 was called. Bystander CPR was initiated. Upon EMS arrival CPR was continued. There was return of spontaneous circulation after about 40 minutes. The patient reportedly received one shock, a total of 5 mg of epinephrine, 2 mg of Narcan an amp of D50, an amp of sodium bicarb and 300 mg of amiodarone prior to arrival. Upon arrival in the emergency department the patient's temperature was 95.7, pulse 77, respiratory rate 25, blood pressure 79/32. Chest x-ray showed no acute abnormality. EKG showed sinus rhythm with first degree AV block and a rate of 81 beats per minute. Laboratory notable for white blood cell count of 26.4 with 15% bands. Troponin less than 0.05. He was started on propofol drip. He is being admitted to [facility] for evaluation and further treatment. PAST MEDICAL HISTORY 1. Admission to [facility] 05/16/2016 through 05/18/2016 for chronic obstructive pulmonary disease exacerbation. The patient's ejection fraction per the discharge summary was 45%. 2. Congestive heart failure. Followed by Dr. Vasquez. 3. Chronic obstructive pulmonary disease with continued tobacco abuse. 4. Hypertension. 5. Hyperlipidemia. 6. Diabetes. 7. Chronic kidney disease. PAST SURGICAL HISTORY None. SOCIAL HISTORY The patient lives with his nephew. He continues to smoke. Per record review he has a history of heavy alcohol, but does not currently drink Unit #: [id number] #: [id number] Patient: FATUMA BALL heavily per family. He typically walks without assistance. He works in construction. FAMILY HISTORY Notable for his sister having diabetes. ALLERGIES Penicillin. HOME MEDICATIONS 1. Hydrochlorothiazide 25 mg b.i.d. 2. Coreg 25 mg b.i.d. 3. Lasix 40 mg daily. 4. Albuterol t.i.d. p.r.n. 5. Ventolin 2 puffs q.4 h. p.r.n. REVIEW OF SYSTEMS A complete review of systems is unobtainable from the patient due to current intubation and sedation. PHYSICAL EXAMINATION GENERAL: The patient is an male who is sedated and intubated. VITALS: Temperature 95.7, pulse 77, respiratory rate 25, blood pressure 79/32. HEENT: The head is atraumatic. Mucous membranes are moist. NECK: Supple. Trachea midline. LUNGS: decreased breath sounds with a few scattered rhonchi. HEART: Regular rate and rhythm. ABDOMEN: Soft, nontender, with bowel sounds present all four quadrants. EXTREMITIES: There is no pedal edema. NEUROLOGIC: The patient is currently on propofol drip. SKIN: Skin of examined areas is warm and dry. DIAGNOSTIC STUDIES IMAGING: Chest x-ray shows no acute abnormality. LABORATORY: Arterial blood gas shows pH 7.133, pCO2 61.9, pO2 509 on assist control with an FIO2 of 100%. Troponin is less than 0.05. INR is 1.1. CMP notable for bicarb of 20, glucose 306, BUN 12, creatinine 1.7, AST 49, total protein 5.7, albumin 2.9. CBC notable for white blood cell count of 26.4, with 15% bands, platelets 106. CARDIOVASCULAR: EKG shows sinus rhythm with first degree AV block and a rate of 81 beats per minute. ASSESSMENT The patient is a 61-year-old male with 1. Resuscitated arrest with about 45 minutes of CPR. 2. History of chest pain per the patient's family. 3. Congestive heart failure with an ejection fraction of 45% per the discharge summary dated 05/18/2016. 4. Chronic obstructive pulmonary disease with continued tobacco abuse. 5. Possible aspiration pneumonia. 6. Possible sepsis with white blood cell count of 26.4, including 15% bands. 7. Thrombocytopenia. The patient's platelet count was 151 on 05/18/2016 and it is 106 today. Unit #: [id number] #: [id number] Patient: FATUMA BALL 8. Uncontrolled diabetes with a glucose of 306. 9. Chronic kidney disease. The patient's creatinine is 1.7 today and it has been as high as 2 on 01/09/2016 and it was 1.2 on 05/18/2016. 10. Former alcohol abuse. 11. Tobacco abuse. PLAN 1. Admit to the ICU. 2. N.p.o. 3. Consult Dr. Eason regarding ICU admission and resuscitated arrest. I have spoken with him regarding this patient and we are planning to start hypothermia protocol. 4. Consult Dr. Vasquez regarding resuscitated arrest. 5. Serial cardiac enzymes. 6. Blood cultures times two. 7. Procalcitonin level. 8. Sepsis protocol. 9. Zosyn IV for possible aspiration pneumonia pending further workup. 10. Strict ins and outs. 11. Check urinalysis and urine tox screen. 12. Hemoglobin A1c. 13. Low-dose sliding scale insulin with Accu-Cheks. 14. Check magnesium level. 15. CT of the head without contrast. 16. Repeat labs in the morning. 17. Chest x-ray in the morning. 18. SCDs for DVT prophylaxis. 19. Additional workup and consultants based on the above. Forty-two minutes critical care time spent in the care of this patient (11:10 to 11:52 a.m.). I spoke with the patient's family regarding the patient's poor prognosis. All of their questions were answered. Dictated by Josefina Walker M.D. Lana TD: 07/16/2016 12:06 JOB #: [id number] HISTORY AND PHYSICAL Page 1 of 1 X Josefina Walker MD HISTORY AND PHYSICAL
--- NOTE | ~2016-07-16 | CO ---
Unit #: [id number] #: [id number] Patient: FATUMA BALL [id number] [facility]. [place], [place] [address] [id number] I MR#: [id number] NAME: FATUMA BALL ROOM: 60736 Age: 61 Sex: M Admission Date: 07/16/2016 : 1955 Attending Physician: Levy Daley M.D. Primary Care Physician: No Primary Care Physician Consultation Date: 07/16/2016 CONSULTATION REPORT REASON FOR CONSULTATION Assisting with management after full cardiopulmonary arrest. HISTORY OF PRESENT ILLNESS This is a 61-year-old -Maced[place] male who is known to Dr. Vasquez, has been taking care of him in the past for nonischemic cardiomyopathy. He was here in April for acute on chronic systolic congestive heart failure. He had a repeat 2D echo that showed his LV EF increased to 45%. It is noted that on previous echo his EF had been as low as 15% last year and early April it was 20% in the office. Patient's last cardiac cath was last December and he had normal coronaries except a 50% stenosis in the mid RCA. He has got chronic kidney disease, COPD, continues to smoke, hypertension, diabetic, and reformed alcohol abuse. The patient is currently intubated, mildly sedated, and poorly responsive. According to the family which the patient lives with his nephew, he had gone outside possibly to smoke and he was gone about 20 minutes and the nephew went out there to check on him and he was found unresponsive. Next, -- was called. Bystanders initiated CPR. Upon EMS arrival, CPR was continued. There was a return of spontaneous circulation after about 40 minutes. The patient reportedly received one shock, possibly thinking it may have been ventricular tachycardia or ventricular fibrillation. He received a total 5 mg of epinephrine, 5 mg of Narcan, an amp of D50, and an amp of sodium bicarbonate, and 300 mg of amiodarone prior to arrival to the emergency room. In the emergency room, the patient's blood pressure was 79/32. His heart rate was 77, respirations 26, temperature 95.7. He was intubated as mentioned. After increasing fluids for a while, his blood pressure then came up to 108/85. Patient's initial labs: His ABG shows pH of 7.133, pCO2 of 61.9, pO2 of 509 on assist control with FIO2 of 100%. His initial cardiac enzymes are negative. His INR is 1.1. His bicarbonate was 20, glucose 306, BUN 12, creatinine 1.7. AST 49, total protein 5.7, albumin 2.9. His white blood count was 26.4 with 15% bands, platelets 106,000. EKG shows normal sinus rhythm with a first degree AV block at a rate of 81 beats per minute. A chest x-ray, preliminary report, did not show anything acute. Patient is stable off pressors, not on a pressor. He was started on a propofol drip and he plans to initiate him on the sepsis protocol due to that he had a systolic pressure of less than 70 when arrived, awaiting lactic acid results but probably the plans are to put him on sepsis protocol and also he is on hypothermia protocol. The patient's EKG showed sinus rhythm with a first degree AV block, prolonged QT waves, otherwise nothing remarkable. Patient is on IV fluids along with initiated on IV antibiotics. Cultures are pending. Cardiology consulted to assist and evaluation and management. Unit #: [id number] #: [id number] Patient: FATUMA BALL PAST MEDICAL HISTORY 1. Latest 2D echo which was done here at [facility] was in [facility], May 16, 2016, was a technically limited study that revealed LV EF was 45% to 50% with mild global hypokinesis of the left ventricle, mildly dilated right ventricle, mild mitral regurgitation, mitral cuspid regurgitation. 2. Last cardiac cath, January 09, 2014, revealed normal left main, normal LAD, normal left circumflex. Mid RCA had a 50% stenosis. 3. It is noted that patient had a 2D echo, December 2015, that revealed the LV EF was 15%. 4. Diabetes mellitus type 2. 5. Chronic kidney disease. 6. COPD. 7. Nicotine abuse. 8. Hypertension. 9. Chronic systolic congestive heart failure. 10. Nicotine abuse, possibly alcohol abuse. PAST SURGICAL HISTORY None. HOME MEDICATIONS 1. Hydrochlorothiazide 25 mg p.o. twice daily. 2. Carvedilol 25 mg p.o. daily. 3. Lasix 40 mg p.o. daily. 4. Albuterol inhalation three times daily p.r.n. 5. Ventolin two puffs inhalation every four hours p.r.n. It is noted that when patient last saw Dr. Vasquez in the office on May 30, 2016, that he was on these medications: 1. Aspirin 81 mg p.o. daily. 2. BiDil 20/37.5 one tablet p.o. three times daily. 3. Carvedilol 25 mg p.o. twice daily. 4. Furosemide 40 mg one tablet daily. 5. Lisinopril 5 mg p.o. daily at bedtime. 6. Spironolactone 25 mg one tablet daily. ALLERGIES Penicillin. SOCIAL HISTORY The patient lives with his nephew. He continues to smoke about a half pack a day. He is a reformed alcohol use. No alcohol. No illicit drug abuse. FAMILY HISTORY Negative except his sister has diabetes mellitus. REVIEW OF SYSTEMS See details in HPI. PHYSICAL EXAMINATION GENERAL: On exam, Mr. Ball is a 61-year-old -Maced[place] male. He is intubated, sedated, poorly responsive. VITAL SIGNS: Blood pressure currently is 117/80, heart rate 54, respiratory rate 16, temperature 95.6, O2 saturation 95% on ventilator. NECK: Trachea midline. No thyromegaly. No lymphadenopathy. Normal Unit #: [id number] #: [id number] Patient: FATUMA BALL carotid upstrokes. No jugular venous distention. HEART: S1, S2. Regular rate and rhythm. Slightly bradycardic. LUNGS: Very diminished. A few faint scattered wheezes in upper airways. ABDOMEN: Obese, soft, nontender. EXTREMITIES: Pedal pulses are palpable. No pedal edema. DIAGNOSTIC STUDIES LABORATORY: His ABGs: A pH 7.267, pCO2 of 63.2, pO2 of 87.3 and that is on FIO2 of 40%. Glucose is 306, BUN 12, creatinine 1.7, eGFR is 42.6, sodium 140, potassium 4.7, chloride 105, CO2 of 20, calcium 8.5. Magnesium 2.1. Total protein 5.7, albumin 2.9, bilirubin total 0.6, AST 49, ALT 40, alkaline phosphatase 62. INR is 1.1. WBC 26.4, hemoglobin 12.6, hematocrit 39.2, platelets 106,000. Urine tox screen is negative. Urinalysis shows 3+ protein, 500 glucose, 0.2 urobilinogen, 2+ blood, 10-25 RBCs and 5-10 WBCs with 1+ bacteria. Blood and urine cultures are pending. Initial cardiac enzymes: CK-MB 1.4, troponin less than 0.05. CK-MB 3, troponin less than 0.05. INR is 1.1. IMAGING: Chest x-ray: Preliminary report does not show anything active. CARDIOVASCULAR: EKG shows normal sinus rhythm with a first-degree AV block, prolonged QT, ventricular rate 81 beats per minute, Q wave in V1, poor R-wave progression, mild left ventricular hypertrophy. IMPRESSION 1. Resuscitated cardiopulmonary arrest. 2. Chest pain. 3. History of nonischemic cardiomyopathy, last echo was May 16, 2016, which revealed the left ventricular ejection fraction was 45%. Prior left ventricular ejection fraction was 20% on echo. 4. Chronic kidney disease. 5. Diabetes mellitus type 2. 6. Hypertension. 7. Hyperlipidemia. 8. Chronic obstructive pulmonary disease. 9. Questionable aspiration pneumonia. 10. Former alcohol abuse. 11. Nicotine abuse. PLAN 1. Continue supportive measures on hypothermia protocol at this time. 2. Patient is mildly sedated. 3. Continue IV fluids. The patient has not required a pressor at this point. 4. Start on IV antibiotics. 5. Patient on the hypothermia protocol, will follow. 6. Evaluate for sepsis or septic shock. 7. Patient's poorly responsive and lightly sedated. Will continue that unless his blood pressure starts dropping. 8. Check magnesium level and evaluate. 9. Check lactic acid level and evaluate. 10. CT of the head has been ordered to be done when he is stable. 11. Continue supportive measures. Thank you very much for allowing us to assist in the care. We will continue to monitor cardiac enzymes and EKG which so far are negative for any acute ischemic changes, but however, will decide during this hospitalization how aggressive treatment and discuss with the family. Unit #: [id number] #: [id number] Patient: FATUMA BALL Dictated by... Lia Omer A.P.R.N. for Abel Pealyo/alden TD: 07/16/2016 16:17 JOB #: [id number] CONSULTATION REPORT Page 1 of 1 X Lia Omer APRN CONSULTATION REPORT
--- NOTE | ~2016-07-16 | CR72 ---
[facility] A Service of [facility] RADIOLOGY TEXT RESULTS PATIENT: FATUMA BALL [facility] UNIT #: [id number] AGE: [address]: Levy Daley MD SEX: M ORDER DR: [id number] [place] [address] [facility]. [place], [place] [address] [id number] I MR#: [id number] #: [id number] NAME: FATUMA BALL : 1955 SEX: M STUDY DATE/TIME: 07/16/2016 10:12 [id number] STUDY DESCRIPTION: CR Chest Single View Portable Attending Physician: Levy Daley M.D. Ordering Physician: Levy Daley M.D. MEDICAL IMAGING REPORT This report is preliminary unless electronic signature is present EXAM Chest portable 07/16/2016 1012 hours HISTORY Shortness of air, status post full arrest. Intubation today. COMPARISON 05/18/2016 FINDINGS 2 portable views of the chest are performed to include all of the lungs. There is an endotracheal tube present with tip 5 cm above the madai. There is a right IJ catheter with tip in mid SVC. There is a nasogastric tube present with tip in the fundus of the stomach. The cardiac, mediastinal and hilar contours are normal. Pulmonary vascularity is normal. The lungs are clear. There is no pleural effusion or pneumothorax. IMPRESSION New endotracheal tube tip 5 cm above the madai. Right IJ tip in the mid SVC. Nasogastric tube tip is in the fundus of the stomach. Heart size is normal. The lungs are clear. There is no pleural effusion or pneumothorax. Dictated by... Sakshi Suh M.D. THIS IS AN ELECTRONICALLY VERIFIED REPORT Sakshi Suh M.D. at 07/16/2016 5:51 PM Mariela TD: 07/16/2016 10:41 JOB #: [id number] [facility] A Service of [facility] RADIOLOGY TEXT RESULTS PATIENT: FATUMA BALL [facility] UNIT #: [id number] AGE: [address]: Levy Daley MD SEX: M ORDER DR: MEDICAL IMAGING REPORT Page 1 of 1 COPY
--- NOTE | ~2016-07-16 | CO ---
Unit #: [id number] #: [id number] Patient: FATUMA BALL [id number] [address] [address] [id number] I MR#: [id number] NAME: FATUMA BALL ROOM: [id number] Age: 61 Sex: M Admission Date: 07/16/2016 : 1955 Attending Physician: Levy Daley M.D. Primary Care Physician: No Primary Care Physician CONSULTATION REPORT REASON FOR CONSULTATION Critical care management, respiratory failure, cardiac arrest. CHIEF COMPLAINT Cardiac arrest. AND HISTORY OF PRESENT ILLNESS This is a 61-year-old male who has a past medical history of COPD, chronic systolic heart failure and history of tobacco use. Presents with cardiac arrest. Was found unresponsive outside his house. CPR was done. He was given shock for the V fib, brought into the emergency room. I am seeing the patient at the bedside. He is currently sedated, intubated. PAST MEDICAL HISTORY 1. Congestive heart failure. 2. Hypertension. 3. COPD. SOCIAL HISTORY Half pack smoker per day. No alcohol abuse. FAMILY HISTORY COPD and coronary artery disease. ALLERGIES Penicillin. MEDICATIONS Spironolactone, Lasix, Coreg, hydralazine, Imdur. PHYSICAL EXAMINATION VITAL SIGNS: Temp 95, pulse 110, respirations 16, blood pressure 170/60. NEUROLOGIC: Sedated. CVS: S1, S2. RESPIRATORY: Bilateral air entry. Bilateral mild rhonchi. GI: Nontender. Soft. Bowel sounds positive. EXTREMITIES: No edema. DIAGNOSTIC STUDIES LABS: Blood gas - pH 7.13, pCO2 61, pO2 509. His creatinine is 1.7. White count 26, hemoglobin 12, hematocrit 39, platelet count 106. Troponin is pending. ASSESSMENT Unit #: [id number] #: [id number] Patient: FATUMA BALL 1. Cardiac arrest. 2. Questionable possible anoxic brain injury. 3. COPD. 4. Respiratory acidosis. 5. Critically ill patient. PLAN At this point plan is to start hypothermia protocol, ventilator support, IV steroid, bronchodilator, IV fluids, GI and DVT prophylaxis, cardiology consultation, two-D echocardiogram, troponin. Patient will be closely monitored. Prognosis is guarded. Please see orders for detailed plan. Thank you very much for this consultation. I will follow the patient along with you very closely. Dictated by... Abel Panchal TD: 07/16/2016 11:55 JOB #: [id number] CONSULTATION REPORT Page 1 of 1 X Abigail Eason MD X CONSULTATION REPORT
--- NOTE | ~2016-07-16 | A ---
[facility] Nutrition Therapy DATE: 07/17/16 Patient: FATUMA BALL Physician: SUSANA Address: [address] Room/Bed: [address], Zip: [place] [address] Admit Date: 07/16/16 Date of : 55 Height: 6 1 Weight: 253 115 NUTRITIONAL ASSESSMENT: REASON: NO DIET ORDER IN ICU ASSESSMENT PT IS 61 Y.O. MALE ADMITTED FOR RESUSCITATED CARDIOPULMONARY ARREST, CHEST PAIN PMH: CKD, COPD, T2DM, HTN, HLD, CHF, SMOKER, PREVIOUS ETOH ABUSE Anthropometrics: 6'3", WT: 246# (112 KG), BMI: 30.7, 125%IBW -WEIGHTS HAVE RANGED 241-253# SINCE ADMIT Labs: GLU: 125, CREAT: 1.7, CA+:8.3, AST: 58, ALT: 54, PHOS: 2.2, A1c: 5.4, GFR: 42.6 Meds: PROPOFOL, FENTANYL, KCL, NOVOLOG, SOLU-MEDROL, IV LEVAQUIN, PROTONIX I/O & Bowel function: 3425/940 Skin Integrity: NO KNOWN SKIN ISSUES Estimated Nutrition Needs: 1676-2005 KCAL (20-25 KCAL/KG BW) 112-134 G PRO (1.0-1.2 G PRO/KG BW) FLUIDS CONSISTENT W/KCAL NEEDS OR MANAGE PER MD Assessment: CHART REVIEWED AND EVENTS NOTED. PT SEEN FOR NO DIET ORDER IN ICU. PT CURRENTLY INTUBATED AND SEDATED (PROPOFOL AT RATE OF 39.2 ML/HR PROVIDING ~1035 KCAL FROM LIPIDS). PT ON HYPOTHERMIA PROTOCOL AT TIME OF VISIT. NO FAMILY IN ROOM AT THIS TIME. NO CURRENT PLANS IN PLACE FOR ALTERNATIVE NUTRITION SUPPORT AT THIS TIME. RD TO FOLLOW. SEE RECOMMENDATIONS BELOW. Dx: INADEQUATE ORAL INTAKE R/T NUTRITION NOT YET INITIATED AEB PT NPO STATUS, PT INTUBATED AND SEDATED. Intervention: 1. NPO Monitoring, Evaluation and Goals: 1. ENTERAL NUTRITION; PROVIDE ~80-100% ESTIMATED NUTRIENT NEEDS AT GOAL RATE X 24 HOURS 2. ORAL INTAKE; ADVANCE DIET AND TOLERATE W/NO C/O N/V/D (PO>50%) 3. LABS; WNL: GLU, PHOS 4. GI; PROMOTE REGULAR GI FUNCTION MONITOR: -WEIGHTS [facility] Nutrition Therapy DATE: 07/17/16 Patient: FATUMA BALL Physician: SUSANA Address: [address] Room/Bed: [address], Zip: [place] [address] Admit Date: 07/16/16 Date of : [birth year] Height: 6 1 Weight: 253 115 -PLANS FOR SUPPORT -SEDATION RATE -EXTUBATION? Recommendations: 1. ONCE MEDICALLY FEASIBLE AND PT EXTUBATED, ADVANCE DIET PER FISCAL CLERK + CC 2. IF PT REMAINS INTUBATED >24 HOURS, CONSIDER PLACING DHT AND BEGIN ALTERNATIVE NUTRITION SUPPORT OF GLUCERNA 1.5 @ 20 ML/HR, ADVANCE 10 ML q 6 HOURS TO GOAL RATE OF 35 ML/HR + SEDATION + SUGAR-FREE PROSTAT TID -TOTAL PROVIDES 2595 KCAL, 114 G PRO, 638 ML FREE H20 ADD FREE H20 FLUSHES PER MD 3. ONCE PROPOFOL D/C'D, BEGIN ALTERNATIVE NUTRITION SUPPORT OF GLUCERNA 1.5 @ 20 ML/HR, ADVANCE 10 ML q 6 HOURS TO GOAL RATE OF 65 ML/HR -PROVIDES 2340 KCAL, 128 G PRO, 1186 ML FREE H20 ADD FREE H20 FLUSHES PER MD 4. CONTINUE TO MONITOR ELECTROLYTES-PHOS LEVEL LOW RD WILL F/U PER PROTOCOL PT IS SEVERELY COMPROMISED Respectfully, RUPERT MENDOZA MS, RD, LD [facility] cc: client file
--- NOTE | ~2016-07-16 | CR72 ---
[facility] A Service of [facility] RADIOLOGY TEXT RESULTS PATIENT: FATUMA BALL LOCATION: [address] : [birth year] UNIT #: [id number] AGE: [address]: Nata Knight MD SEX: M ORDER DR: [id number] [facility] [address] [facility]. [place], [place] [address] [id number] I MR#: [id number] Acc #: [id number] NAME: FATUMA BALL : 1955 SEX: M STUDY DATE/TIME: 07/19/2016 4:05 UNIT: [facility] ROOM: [facility] STUDY DESCRIPTION: CR Chest Single View Portable Attending Physician: Nata Knight M.D. Ordering Physician: Abigail Eason M.D. Primary Care Physician: No Primary Care Physician MEDICAL IMAGING REPORT This report is preliminary unless electronic signature is present EXAM AP portable chest 07/19/2016 HISTORY Endotracheal tube in place. Respiratory failure. Shortness of breath and cough. Symptoms began 07/17/2016. FINDINGS Stable cardiomegaly. NG tube extends into the proximal stomach. ET tube remains in the thoracic trachea. The right central line extends into the mid SVC. No visible pneumothorax. No acute airspace disease is identified. IMPRESSION 1. Supporting lines and tubes appear stable in position. No visible pneumothorax. 2. No acute airspace disease. 3. Stable cardiomegaly. Dictated by... Indy Abdi M.D. THIS IS AN ELECTRONICALLY VERIFIED REPORT Indy Abdi M.D. at 07/20/2016 4:19 AM KATIE/valerie TD: 07/19/2016 08:34 JOB #: [id number] MEDICAL IMAGING REPORT Page 1 of 1 COPY
--- NOTE | ~2016-07-16 | EKG ---
PATIENT: FATUMA BALL UNIT #: [id number] Ventricular Rate: 81 BPM Atrial Rate: 81 BPM P-R Interval: 244 ms QRS Duration: 92 ms Q-T Interval: 444 ms QTC Calculation(Bezet): 515 ms P [place]: 45 degrees Calculated R [place]: 67 degrees Calculated T [place]: 68 degrees Diagnosis Line: Sinus rhythm with 1st degree A-V block Diagnosis Line: Prolonged QT Diagnosis Line: Abnormal ECG Diagnosis Line: When compared with ECG of 16-MAY-2016 03:28, Diagnosis Line: PA interval has increased Diagnosis Line: Nonspecific T wave abnormality no longer evident Diagnosis Line: in Lateral leads Diagnosis Line: Confirmed by PAYAM NGUYEN MD ([id number]) on 07/16/2016 Diagnosis Line: 10:43:35 PM INTERPRETING MD: PATRICK ANAYA
--- NOTE | ~2016-07-16 | EKG ---
PATIENT: FATUMA BALL UNIT #: [id number] Ventricular Rate: 57 BPM Atrial Rate: 57 BPM P-R Interval: 206 ms QRS Duration: 88 ms Q-T Interval: 486 ms QTC Calculation(Bezet): 473 ms P [place]: -22 degrees Calculated R [place]: 59 degrees Calculated T [place]: -24 degrees Diagnosis Line: Sinus bradycardia Diagnosis Line: Nonspecific T wave abnormality Diagnosis Line: Borderline ECG Diagnosis Line: Muscle tremor Diagnosis Line: When compared with ECG of 16-JUL-2016 09:41, Diagnosis Line: (unconfirmed) Diagnosis Line: FL interval has decreased Diagnosis Line: Nonspecific T wave abnormality now evident in Diagnosis Line: Inferior leads Diagnosis Line: Nonspecific T wave abnormality now evident in Diagnosis Line: Anterior leads Diagnosis Line: Confirmed by PAYAM NGUYEN MD ([id number]) on 07/16/2016 Diagnosis Line: 10:49:29 PM INTERPRETING MD: PATRICK ANAYA
--- NOTE | ~2016-07-16 | CR72 ---
[facility] A Service of [facility] RADIOLOGY TEXT RESULTS PATIENT: FATUMA BALL LOCATION: [address] : 55 UNIT #: [id number] AGE: [address]: Nata Knight MD SEX: M ORDER DR: [id number] [facility] [address]. [place], [place] [address] [id number] I MR#: [id number] Acc #: [id number] NAME: FATUMA BALL : 1955 SEX: M STUDY DATE/TIME: 07/18/2016 4:16 UNIT: [facility] ROOM: [facility] STUDY DESCRIPTION: CR Chest Single View Portable Attending Physician: Nata Knight M.D. Ordering Physician: Abigail Eason M.D. Primary Care Physician: Primary Care Physician No MEDICAL IMAGING REPORT This report is preliminary unless electronic signature is present EXAM Chest x-ray 07/18/2016 HISTORY Respiratory failure. Patient on ventilator. Follow up cardiopulmonary status. TECHNIQUE AP portable chest x-ray. FINDINGS There has been no change since yesterday. Endotracheal tube, right IJ central line and NG tube remain in good position. Stable cardiomegaly. Pulmonary vascularity is normal. The lungs appear clear. IMPRESSION Stable chest x-ray, unchanged since yesterday. Support equipment in good position. Dictated by... Fransisco Barboza M.D. THIS IS AN ELECTRONICALLY VERIFIED REPORT Fransisco Barboza M.D. at 07/23/2016 9:15 AM PATIENCE/yahaira TD: 07/18/2016 06:41 JOB #: [id number] MEDICAL IMAGING REPORT Page 1 of 1 COPY
--- NOTE | ~2016-07-16 | CT71 ---
[facility] A Service of [facility] RADIOLOGY TEXT RESULTS PATIENT: FATUMA BALL LOCATION: [facility] : 55 UNIT #: [id number] AGE: [address]: Nata Knight MD SEX: M ORDER DR: [id number] [place] [id number] [facility]. [place], [place] [address] [id number] I MR#: [id number] Acc #: [id number] NAME: FATUMA BALL : 1955 SEX: M STUDY DATE/TIME: 07/18/2016 11:43 UNIT: [facility] ROOM: [facility] STUDY DESCRIPTION: CT Head Wo Contrast Attending Physician: Nata Knight M.D. Ordering Physician: Nata Knight M.D. MEDICAL IMAGING REPORT This report is preliminary unless electronic signature is present EXAM Head CT no contrast, 07/18/2016 COMPARISON 07/16/2016 PROCEDURE Axial unenhanced head CT. This CT exam was performed with one or more of the following radiation dose reduction techniques: automatic exposure control, adjustment of mA and/or kV according to patient size, and iterative reconstruction. HISTORY Unresponsive since cardiorespiratory arrest on 07/16/2016. FINDINGS There is a diffuse loss of morrison-white differentiation. There is no parenchymal hemorrhage. There is no hydrocephalus. There may be partial sparing of morrison-white differentiation in the cerebellum. Notably ventricle volume is decreased when compared to the head CT of 07/16/2016 and when compared to the head CT of 05/16/2016. IMPRESSION Findings suggest diffuse anoxic injury with diffuse loss of morrison-white differentiation with the perhaps partial cerebellar sparing. No parenchymal hemorrhage. No hydrocephalus or extraaxial collection. Dictated by... Zeke Jones M.D. [facility] A Service of [facility] RADIOLOGY TEXT RESULTS PATIENT: FATUMA BALL LOCATION: [facility] : 55 UNIT #: [id number] AGE: [address]: Nata Knight MD SEX: M ORDER DR: THIS IS AN ELECTRONICALLY VERIFIED REPORT Zeke Jones M.D. at 07/19/2016 10:25 AM HEATHER/rosa TD: 07/18/2016 14:58 JOB #: [id number] MEDICAL IMAGING REPORT Page 1 of 1 COPY
--- NOTE | ~2016-07-16 | EKG ---
PATIENT: FATUMA BALL UNIT #: [id number] Ventricular Rate: 50 BPM Atrial Rate: 50 BPM P-R Interval: 202 ms QRS Duration: 108 ms Q-T Interval: 612 ms QTC Calculation(Bezet): 557 ms P [place]: 36 degrees Calculated R [place]: 57 degrees Calculated T [place]: 60 degrees Diagnosis Line: Sinus bradycardia Diagnosis Line: ST elevation consider lateral injury or acute Diagnosis Line: infarct Diagnosis Line: Prolonged QT Diagnosis Line: Nonspecific ST and T wave abnormality Diagnosis Line: Abnormal ECG Diagnosis Line: When compared with ECG of 16-JUL-2016 18:08, Diagnosis Line: Nonspecific T wave abnormality no longer evident Diagnosis Line: in Inferior leads Diagnosis Line: T wave inversion now evident in Anterior leads Diagnosis Line: QT has lengthened Diagnosis Line: Confirmed by SELVIN BETANCOURT MD ([id number]) on Diagnosis Line: 07/18/2016 10:59:50 PM INTERPRETING MD: MISBAH
[2016-07-16 09:33] LABS: ARTERIAL BLD GAS O2 SATURATION 96.5 % (90.0-100.0); ARTERIAL BLOOD GAS CARBOXY HB 2.5 %sat (0.0-9.0); ARTERIAL BLOOD GAS HCO3 20.7 mmol/L
[2016-07-16 09:35] LABS: ARTERIAL BLOOD GAS ALLEN TEST POS; ARTERIAL BLOOD GAS ART SITE LEFT RADIAL; ARTERIAL BLOOD GAS DELIVERY VENT; ARTERIAL BLOOD GAS PCO2 61.9 mmHg (35.0-45.0); ARTERIAL BLOOD GAS VENT MODE AC; ARTERIAL BLOOD GAS pH 7.133 (7.350-7.450); ARTERIAL DRAW? YES
[~2016-07-16 09:38] MED LIST changes: +ALBUTEROL NEB; +CARVEDILOL25 MG PO; +DELTASONE20 MG PO; +HYDRALAZINE HCL25 MG PO; +IMDUR-ER30 M1 PO; +LASIX20 MG PO; +LEVAQUIN PO
[2016-07-16 10:00] LABS: POC - CKMB 1.4 ng/mL (0.0-7.9); POC - TROPONIN <0.05 ng/mL (<=0.05)
[2016-07-16 10:05] LABS: BASOPHIL# 0.1 X10e3 (0-0.3); BASOPHIL% 0.3 % (0-2.5); EOSINOPHIL# 0.3 X10e3 (0-0.7); HEMATOCRIT 39.2 % (38.0-50.0); HEMOGLOBIN 12.6 gm/dL (13.0-16.0); LYMPHOCYTE# 3.9 X10e3 (1.0-3.5); LYMPHOCYTE% 14.7 % (17.0-45.0); MEAN CELL VOLUME 93.9 FL (83-96); MEAN CORPUSCULAR HEMOGLOBIN 30.2 PG (28-34); MEAN CORPUSCULAR HGB CONC 32.2 g/dL (30-36); MEAN PLATELET VOLUME 9.6 FL (6.5-11.5); MONOCYTE# 0.8 X10e3 (0-1.0); MONOCYTE% 3.2 % (3.0-12.0); NEUTROPHIL# 21.3 X10e3 (1.5-7.1); NEUTROPHIL% 80.8 % (40-75); PLATELET COUNT 106 X10e3 (140-420); RED BLOOD COUNT 4.17 X10e (3.90-5.60); RED CELL DISTRIBUTION WIDTH 13.7 % (11.0-15.5); WHITE BLOOD COUNT 26.4 X10e3 (4.0-10.5)
[2016-07-16 10:08] LABS: DIFF IND YES
[2016-07-16 10:13] LABS: INR 1.1; PARTIAL THROMBOPLASTIN TIME 31.3 SECONDS (23.5-31.3); PROTHROMBIN TIME (PATIENT) 11.9 SECONDS (9.6-11.5)
[2016-07-16 10:21] LABS: ALBUMIN SERUM 2.9 g/dL (3.5-5.0); BILIRUBIN, DIRECT 0.2 mg/dL (0.0-0.2); BILIRUBIN,INDIRECT 0.4 mg/dL (0.0-0.9); BILIRUBIN,TOTAL 0.6 mg/dL (0.2-2.0); BUN/CREATININE RATIO 7.05; CALCIUM SERUM 8.5 mg/dL (8.4-10.2); CREATININE SERUM 1.7 mg/dL (0.6-1.4); GLOM FILT RATE Estimated 42.6 mL/min (>60); POTASSIUM 4.7 mmol/L (3.5-5.1); PROTEIN TOTAL SERUM 5.7 g/dL (6.0-8.3)
[2016-07-16 10:42] LABS: ANISOCYTOSIS SL; PLATELET ESTIMATE DECREASED (NORMAL)
[2016-07-16] MEDS ORDERED: HYDROCHLOROTHIA25 MG PO (11:01)
[2016-07-16] MEDS ORDERED: ALBUTEROL MININEB NEB (11:02)
[2016-07-16] MEDS ORDERED: LASIX PO (11:02)
[2016-07-16] MEDS ORDERED: CARVEDILOL25 MG PO (11:02)
[2016-07-16] MEDS ORDERED: ALBUTEROL17 GM INH (11:03)
[2016-07-16 11:42] LABS: ARTERIAL BLD GAS O2 SATURATION 92.8 % (90.0-100.0); ARTERIAL BLOOD GAS CARBOXY HB 2.2 %sat (0.0-9.0); ARTERIAL BLOOD GAS HCO3 28.8 mmol/L; ARTERIAL BLOOD GAS MET HB 0.8 %sat (0.0-2.0); ARTERIAL BLOOD GAS PO2 87.3 mmHg (80.0-100); ARTERIAL BLOOD GAS pH 7.267 (7.350-7.450)
[2016-07-16 11:43] LABS: ARTERIAL BLOOD GAS ALLEN TEST NORMAL; ARTERIAL BLOOD GAS ART SITE RIGHT RADIAL; ARTERIAL BLOOD GAS DELIVERY VENT; ARTERIAL BLOOD GAS PCO2 63.2 mmHg (35.0-45.0); ARTERIAL BLOOD GAS VENT MODE AC; ARTERIAL DRAW? YES
[2016-07-16 11:50] LABS: POC - TROPONIN <0.05 ng/mL (<=0.05)
[2016-07-16 12:30] LABS: URINE SOURCE CATH
[2016-07-16 12:47] LABS: MAGNESIUM 2.1 mg/dL (1.6-3.0)
[2016-07-16 12:53] LABS: URINE BILIRUBIN NEG (NEG); URINE BLOOD 2+ (NEG); URINE COLOR YELLOW; URINE GLUCOSE 500 MG/DL (NEG); URINE KETONE NEG (NEG); URINE LEUKOCYTE ESTERASE NEG (NEG); URINE NITRATE NEG (NEG); URINE PH 6.5 (5-8); URINE PROTEIN 3+ (NEG); URINE SPECIFIC GRAVITY 1.009 (1.003-1.035); URINE UROBILINOGEN 0.2 MG/DL (NEG)
[2016-07-16 12:59] LABS: URINE SQUAMOUS EPITHELIAL CELL OCC /[HPF]
[2016-07-16 13:12] LABS: URINE APPEARANCE HAZY
[2016-07-16 13:16] LABS: URINE BACTERIA AUWI 1+ (NEGATIVE); URINE SPERM PRESENT
[2016-07-16 13:18] LABS: AMPHETAMINE NEG (NEG); BARBITURATES NEG (NEG); BENZODIAZEPINES NEG (NEG); COCAINE NEG (NEG); MARIJUANA NEG (NEG); OPIATES NEG (NEG); TRICYCLIC ANTIDEPRESSANTS NEG (NEG); U METHADONE NEG (NEG)
[2016-07-16 13:34] LABS: PROCALCITONIN <0.05 NG/ML
[2016-07-16 18:19] LABS: BASOPHIL# 0.1 X10e3 (0-0.3); BASOPHIL% 0.4 % (0-2.5); HEMATOCRIT 44.3 % (38.0-50.0); HEMOGLOBIN 14.4 gm/dL (13.0-16.0); LYMPHOCYTE# 0.4 X10e3 (1.0-3.5); LYMPHOCYTE% 2.7 % (17.0-45.0); MEAN CELL VOLUME 93.3 FL (83-96); MEAN CORPUSCULAR HEMOGLOBIN 30.3 PG (28-34); MEAN CORPUSCULAR HGB CONC 32.4 g/dL (30-36); MEAN PLATELET VOLUME 9.6 FL (6.5-11.5); MONOCYTE# 0.4 X10e3 (0-1.0); MONOCYTE% 2.3 % (3.0-12.0); NEUTROPHIL# 14.5 X10e3 (1.5-7.1); NEUTROPHIL% 94.6 % (40-75); RED BLOOD COUNT 4.74 X10e (3.90-5.60); RED CELL DISTRIBUTION WIDTH 13.5 % (11.0-15.5); WHITE BLOOD COUNT 15.3 X10e3 (4.0-10.5)
[2016-07-16 18:31] LABS: INR 1.1; PARTIAL THROMBOPLASTIN TIME 30.3 SECONDS (23.5-31.3); PROTHROMBIN TIME (PATIENT) 11.4 SECONDS (9.6-11.5)
[2016-07-16 19:09] LABS: ALBUMIN SERUM 3.8 g/dL (3.5-5.0); BILIRUBIN,TOTAL 0.9 mg/dL (0.2-2.0); BUN/CREATININE RATIO 10.55; CALCIUM SERUM 8.5 mg/dL (8.4-10.2); CREATININE SERUM 1.8 mg/dL (0.6-1.4); GLOM FILT RATE Estimated 39.7 mL/min (>60); MAGNESIUM 2.1 mg/dL (1.6-3.0); MB 11.9 ng/ml; POTASSIUM 3.9 mmol/L (3.5-5.1); PROTEIN TOTAL SERUM 7.3 g/dL (6.0-8.3)
[2016-07-17 00:21] LABS: %MB 4.4 % (0.0-4.0); MB 11.1 ng/ml
[2016-07-17 00:31] LABS: BASOPHIL% 0.1 % (0-2.5); HEMOGLOBIN 14.4 gm/dL (13.0-16.0); LYMPHOCYTE# 0.5 X10e3 (1.0-3.5); LYMPHOCYTE% 4.2 % (17.0-45.0); MEAN CELL VOLUME 94.5 FL (83-96); MEAN CORPUSCULAR HEMOGLOBIN 30.3 PG (28-34); MEAN PLATELET VOLUME 10.5 FL (6.5-11.5); MONOCYTE# 0.1 X10e3 (0-1.0); NEUTROPHIL# 12.4 X10e3 (1.5-7.1); NEUTROPHIL% 94.7 % (40-75); PLATELET COUNT 109 X10e3 (140-420); RED BLOOD COUNT 4.76 X10e (3.90-5.60); RED CELL DISTRIBUTION WIDTH 13.6 % (11.0-15.5); WHITE BLOOD COUNT 13.1 X10e3 (4.0-10.5)
[2016-07-17 00:34] LABS: DIFF IND NO
[2016-07-17 00:38] LABS: BUN/CREATININE RATIO 12.35; CALCIUM SERUM 8.3 mg/dL (8.4-10.2); CREATININE SERUM 1.7 mg/dL (0.6-1.4); GLOM FILT RATE Estimated 42.6 mL/min (>60); INR 1.1; PARTIAL THROMBOPLASTIN TIME 35.9 SECONDS (23.5-31.3); PHOSPHOROUS 1.6 mg/dL (2.5-4.6); POTASSIUM 3.5 mmol/L (3.5-5.1); PROTHROMBIN TIME (PATIENT) 11.9 SECONDS (9.6-11.5)
[2016-07-17 03:52] LABS: ARTERIAL BLD GAS O2 SATURATION 96.8 % (90.0-100.0); ARTERIAL BLOOD GAS CARBOXY HB 0.6 %sat (0.0-9.0); ARTERIAL BLOOD GAS HCO3 27.1 mmol/L; ARTERIAL BLOOD GAS MET HB 0.7 %sat (0.0-2.0); ARTERIAL BLOOD GAS pH 7.321 (7.350-7.450)
[2016-07-17 03:54] LABS: ARTERIAL BLOOD GAS ART SITE RIGHT BRACHIAL; ARTERIAL BLOOD GAS DELIVERY VENT; ARTERIAL BLOOD GAS PCO2 52.6 mmHg (35.0-45.0); ARTERIAL BLOOD GAS VENT MODE AC; ARTERIAL DRAW? YES
[2016-07-17 06:19] LABS: BASOPHIL% 0.2 % (0-2.5); HEMOGLOBIN 14.1 gm/dL (13.0-16.0); LYMPHOCYTE# 0.6 X10e3 (1.0-3.5); LYMPHOCYTE% 5.3 % (17.0-45.0); MEAN CORPUSCULAR HEMOGLOBIN 30.5 PG (28-34); MEAN CORPUSCULAR HGB CONC 32.8 g/dL (30-36); MEAN PLATELET VOLUME 9.4 FL (6.5-11.5); MONOCYTE# 0.2 X10e3 (0-1.0); NEUTROPHIL# 11.3 X10e3 (1.5-7.1); NEUTROPHIL% 92.5 % (40-75); PLATELET COUNT 105 X10e3 (140-420); RED BLOOD COUNT 4.62 X10e (3.90-5.60); RED CELL DISTRIBUTION WIDTH 13.7 % (11.0-15.5); WHITE BLOOD COUNT 12.2 X10e3 (4.0-10.5)
[2016-07-17 06:26] LABS: DIFF IND NO
[2016-07-17 06:47] LABS: INR 1.1; PARTIAL THROMBOPLASTIN TIME 37.2 SECONDS (23.5-31.3); PROTHROMBIN TIME (PATIENT) 11.6 SECONDS (9.6-11.5)
[2016-07-17 07:16] LABS: BUN/CREATININE RATIO 13.52; CALCIUM SERUM 8.3 mg/dL (8.4-10.2); CREATININE SERUM 1.7 mg/dL (0.6-1.4); GLOM FILT RATE Estimated 42.6 mL/min (>60); PHOSPHOROUS 2.2 mg/dL (2.5-4.6); POTASSIUM 3.8 mmol/L (3.5-5.1)
[2016-07-17 07:37] LABS: %MB 4.7 % (0.0-4.0); MB 10.4 ng/ml
[2016-07-17 11:50] LABS: BASOPHIL% 0.3 % (0-2.5); EOSINOPHIL% 0.3 % (0.0-7.0); HEMATOCRIT 43.3 % (38.0-50.0); HEMOGLOBIN 14.1 gm/dL (13.0-16.0); LYMPHOCYTE# 0.6 X10e3 (1.0-3.5); MEAN CELL VOLUME 94.2 FL (83-96); MEAN CORPUSCULAR HEMOGLOBIN 30.6 PG (28-34); MEAN CORPUSCULAR HGB CONC 32.5 g/dL (30-36); MONOCYTE# 0.3 X10e3 (0-1.0); MONOCYTE% 2.2 % (3.0-12.0); NEUTROPHIL# 13.8 X10e3 (1.5-7.1); NEUTROPHIL% 93.2 % (40-75); PLATELET COUNT 103 X10e3 (140-420); RED CELL DISTRIBUTION WIDTH 13.6 % (11.0-15.5); WHITE BLOOD COUNT 14.8 X10e3 (4.0-10.5)
[2016-07-17 11:52] LABS: DIFF IND NO
[2016-07-17 12:02] LABS: INR 1.1; PROTHROMBIN TIME (PATIENT) 11.4 SECONDS (9.6-11.5)
[2016-07-17 12:54] LABS: BUN/CREATININE RATIO 12.63; CALCIUM SERUM 8.2 mg/dL (8.4-10.2); CREATININE SERUM 1.9 mg/dL (0.6-1.4); GLOM FILT RATE Estimated 37.2 mL/min (>60); PHOSPHOROUS 2.9 mg/dL (2.5-4.6); POTASSIUM 3.8 mmol/L (3.5-5.1)
[2016-07-17 18:18] LABS: BASOPHIL% 0.1 % (0-2.5); HEMATOCRIT 42.9 % (38.0-50.0); HEMOGLOBIN 13.9 gm/dL (13.0-16.0); LYMPHOCYTE# 0.6 X10e3 (1.0-3.5); LYMPHOCYTE% 3.5 % (17.0-45.0); MEAN CELL VOLUME 93.5 FL (83-96); MEAN CORPUSCULAR HEMOGLOBIN 30.4 PG (28-34); MEAN CORPUSCULAR HGB CONC 32.5 g/dL (30-36); MEAN PLATELET VOLUME 9.3 FL (6.5-11.5); MONOCYTE# 0.4 X10e3 (0-1.0); MONOCYTE% 2.7 % (3.0-12.0); NEUTROPHIL# 15.5 X10e3 (1.5-7.1); NEUTROPHIL% 93.7 % (40-75); PLATELET COUNT 100 X10e3 (140-420); RED BLOOD COUNT 4.59 X10e (3.90-5.60); RED CELL DISTRIBUTION WIDTH 13.9 % (11.0-15.5); WHITE BLOOD COUNT 16.6 X10e3 (4.0-10.5)
[2016-07-17 18:19] LABS: DIFF IND YES
[2016-07-17 18:25] LABS: INR 1.1; PROTHROMBIN TIME (PATIENT) 11.1 SECONDS (9.6-11.5)
[2016-07-17 18:40] LABS: BUN/CREATININE RATIO 12.5; CALCIUM SERUM 8.1 mg/dL (8.4-10.2); MAGNESIUM 2.1 mg/dL (1.6-3.0); PHOSPHOROUS 3.3 mg/dL (2.5-4.6); POTASSIUM 3.9 mmol/L (3.5-5.1)
[2016-07-17 18:46] LABS: SMUDGE CELLS 16 /100
[2016-07-17 18:48] LABS: PLATELET ESTIMATE DECREASED (NORMAL); POIKILOCYTOSIS SL
[2016-07-17 18:49] LABS: BURR CELLS PRESENT; OVALOCYTES PRESENT
[2016-07-17 18:59] LABS: %MB 4.2 % (0.0-4.0)
[2016-07-18 02:35] LABS: DIFF IND NO; HEMATOCRIT 42.9 % (38.0-50.0); HEMOGLOBIN 14.1 gm/dL (13.0-16.0); LYMPHOCYTE# 0.5 X10e3 (1.0-3.5); LYMPHOCYTE% 2.5 % (17.0-45.0); MEAN CELL VOLUME 93.8 FL (83-96); MEAN CORPUSCULAR HEMOGLOBIN 30.8 PG (28-34); MEAN CORPUSCULAR HGB CONC 32.8 g/dL (30-36); MEAN PLATELET VOLUME 10.1 FL (6.5-11.5); MONOCYTE# 0.6 X10e3 (0-1.0); MONOCYTE% 2.9 % (3.0-12.0); NEUTROPHIL# 18.7 X10e3 (1.5-7.1); NEUTROPHIL% 94.6 % (40-75); PLATELET COUNT 115 X10e3 (140-420); RED BLOOD COUNT 4.57 X10e (3.90-5.60); RED CELL DISTRIBUTION WIDTH 14.3 % (11.0-15.5); WHITE BLOOD COUNT 19.8 X10e3 (4.0-10.5)
[2016-07-18 02:49] LABS: INR 1.1; PROTHROMBIN TIME (PATIENT) 11.1 SECONDS (9.6-11.5)
[2016-07-18 02:54] LABS: ALBUMIN SERUM 3.3 g/dL (3.5-5.0); BILIRUBIN,TOTAL 0.7 mg/dL (0.2-2.0); BUN/CREATININE RATIO 12.38; CALCIUM SERUM 8.2 mg/dL (8.4-10.2); CREATININE SERUM 2.1 mg/dL (0.6-1.4); MAGNESIUM 2.2 mg/dL (1.6-3.0); PHOSPHOROUS 4.2 mg/dL (2.5-4.6); PROTEIN TOTAL SERUM 6.6 g/dL (6.0-8.3)
[2016-07-18 03:13] LABS: %MB 3.6 % (0.0-4.0); MB 8.5 ng/ml
[2016-07-18 04:21] LABS: ARTERIAL BLD GAS O2 SATURATION 96.4 % (90.0-100.0); ARTERIAL BLOOD GAS CARBOXY HB 0.7 %sat (0.0-9.0); ARTERIAL BLOOD GAS HCO3 25.2 mmol/L; ARTERIAL BLOOD GAS MET HB 0.7 %sat (0.0-2.0); ARTERIAL BLOOD GAS PO2 99.1 mmHg (80.0-100); ARTERIAL BLOOD GAS pH 7.269 (7.350-7.450)
[2016-07-18 04:22] LABS: ARTERIAL BLOOD GAS ALLEN TEST NORMAL; ARTERIAL BLOOD GAS ART SITE LEFT RADIAL; ARTERIAL BLOOD GAS DELIVERY VENT; ARTERIAL BLOOD GAS VENT MODE AC; ARTERIAL DRAW? YES
[2016-07-18 10:16] LABS: BASOPHIL# 0.1 X10e3 (0-0.3); BASOPHIL% 0.3 % (0-2.5); EOSINOPHIL% 0.1 % (0.0-7.0); HEMATOCRIT 43.4 % (38.0-50.0); HEMOGLOBIN 13.9 gm/dL (13.0-16.0); LYMPHOCYTE# 0.4 X10e3 (1.0-3.5); MEAN CELL VOLUME 94.2 FL (83-96); MEAN CORPUSCULAR HEMOGLOBIN 30.1 PG (28-34); MEAN PLATELET VOLUME 9.7 FL (6.5-11.5); MONOCYTE# 0.8 X10e3 (0-1.0); MONOCYTE% 3.5 % (3.0-12.0); NEUTROPHIL# 20.5 X10e3 (1.5-7.1); NEUTROPHIL% 94.1 % (40-75); PLATELET COUNT 107 X10e3 (140-420); WHITE BLOOD COUNT 21.8 X10e3 (4.0-10.5)
[2016-07-18 10:17] LABS: DIFF IND NO
[2016-07-18 10:25] LABS: PROTHROMBIN TIME (PATIENT) 10.9 SECONDS (9.6-11.5)
[2016-07-18 11:19] LABS: BUN/CREATININE RATIO 11.66; CALCIUM SERUM 8.2 mg/dL (8.4-10.2); CREATININE SERUM 2.4 mg/dL (0.6-1.4); GLOM FILT RATE Estimated 28.1 mL/min (>60); MAGNESIUM 2.1 mg/dL (1.6-3.0); PHOSPHOROUS 4.4 mg/dL (2.5-4.6); POTASSIUM 3.6 mmol/L (3.5-5.1)
[2016-07-18 11:38] LABS: %MB 3.4 % (0.0-4.0); MB 6.8 ng/ml
[2016-07-18 12:47] LABS: ARTERIAL BLD GAS O2 SATURATION 95.2 % (90.0-100.0); ARTERIAL BLOOD GAS CARBOXY HB 0.6 %sat (0.0-9.0); ARTERIAL BLOOD GAS HCO3 25.2 mmol/L; ARTERIAL BLOOD GAS MET HB 0.9 %sat (0.0-2.0); ARTERIAL BLOOD GAS PCO2 40.5 mmHg (35.0-45.0); ARTERIAL BLOOD GAS pH 7.403 (7.350-7.450)
[2016-07-18 12:48] LABS: ARTERIAL BLOOD GAS ART SITE RIGHT RADIAL; ARTERIAL BLOOD GAS DELIVERY VENT; ARTERIAL BLOOD GAS PO2 76.8 mmHg (80.0-100); ARTERIAL BLOOD GAS VENT MODE AC; ARTERIAL DRAW? YES
[2016-07-18 19:02] LABS: BASOPHIL% 0.2 % (0-2.5); HEMATOCRIT 42.6 % (38.0-50.0); HEMOGLOBIN 13.6 gm/dL (13.0-16.0); LYMPHOCYTE# 0.4 X10e3 (1.0-3.5); MEAN CELL VOLUME 94.1 FL (83-96); MEAN CORPUSCULAR HEMOGLOBIN 30.1 PG (28-34); MEAN CORPUSCULAR HGB CONC 31.9 g/dL (30-36); MEAN PLATELET VOLUME 10.9 FL (6.5-11.5); MONOCYTE# 0.5 X10e3 (0-1.0); MONOCYTE% 2.4 % (3.0-12.0); NEUTROPHIL% 95.4 % (40-75); PLATELET COUNT 114 X10e3 (140-420); RED BLOOD COUNT 4.53 X10e (3.90-5.60); RED CELL DISTRIBUTION WIDTH 14.4 % (11.0-15.5)
[2016-07-18 19:03] LABS: DIFF IND NO
[2016-07-18 19:21] LABS: PROTHROMBIN TIME (PATIENT) 10.8 SECONDS (9.6-11.5)
[2016-07-18 19:49] LABS: BUN/CREATININE RATIO 12.59; CREATININE SERUM 2.7 mg/dL (0.6-1.4); GLOM FILT RATE Estimated 24.3 mL/min (>60); PHOSPHOROUS 3.2 mg/dL (2.5-4.6); POTASSIUM 3.4 mmol/L (3.5-5.1)
[2016-07-18 20:08] LABS: %MB 4.6 % (0.0-4.0); MB 5.5 ng/ml
[2016-07-19 03:59] LABS: ARTERIAL BLD GAS O2 SATURATION 97.3 % (90.0-100.0); ARTERIAL BLOOD GAS CARBOXY HB 0.5 %sat (0.0-9.0); ARTERIAL BLOOD GAS HCO3 25.9 mmol/L; ARTERIAL BLOOD GAS MET HB 0.9 %sat (0.0-2.0); ARTERIAL BLOOD GAS PCO2 38.6 mmHg (35.0-45.0); ARTERIAL BLOOD GAS pH 7.435 (7.350-7.450)
[2016-07-19 04:02] LABS: ARTERIAL BLOOD GAS ALLEN TEST NORMAL; ARTERIAL BLOOD GAS ART SITE RIGHT RADIAL; ARTERIAL BLOOD GAS DELIVERY VENT; ARTERIAL BLOOD GAS VENT MODE AC; ARTERIAL DRAW? YES
[2016-07-19 06:05] LABS: BASOPHIL% 0.1 % (0-2.5); HEMATOCRIT 41.7 % (38.0-50.0); HEMOGLOBIN 13.3 gm/dL (13.0-16.0); LYMPHOCYTE# 0.6 X10e3 (1.0-3.5); LYMPHOCYTE% 3.4 % (17.0-45.0); MEAN CELL VOLUME 93.4 FL (83-96); MEAN CORPUSCULAR HEMOGLOBIN 29.8 PG (28-34); MEAN CORPUSCULAR HGB CONC 31.9 g/dL (30-36); MEAN PLATELET VOLUME 10.4 FL (6.5-11.5); MONOCYTE# 0.9 X10e3 (0-1.0); MONOCYTE% 4.9 % (3.0-12.0); NEUTROPHIL% 91.6 % (40-75); PLATELET COUNT 117 X10e3 (140-420); RED BLOOD COUNT 4.47 X10e (3.90-5.60); RED CELL DISTRIBUTION WIDTH 14.3 % (11.0-15.5); WHITE BLOOD COUNT 18.6 X10e3 (4.0-10.5)
[2016-07-19 06:08] LABS: DIFF IND NO
[2016-07-19 06:49] LABS: ALBUMIN SERUM 3.2 g/dL (3.5-5.0); BILIRUBIN,TOTAL 0.8 mg/dL (0.2-2.0); BUN/CREATININE RATIO 15.18; CALCIUM SERUM 8.3 mg/dL (8.4-10.2); CREATININE SERUM 2.7 mg/dL (0.6-1.4); GLOM FILT RATE Estimated 24.3 mL/min (>60); POTASSIUM 3.4 mmol/L (3.5-5.1); PROTEIN TOTAL SERUM 6.4 g/dL (6.0-8.3)
== END 2016-07-20 09:15 | disposition expired | DRG 208 ==
LOC: CED 09:38 → CEDOF 11:10 → CICCU2 16:59
PROVIDERS: Emergency Medicine; Family Medicine; Internal Medicine; Internal Medicine Cardiovascular Disease
PROC: 05HM33Z Insertion of Infusion Device into Right Internal Jugular Vein, Percutaneous Approach (ICD-10-PCS; principal; 2016-07-16)
PROC: 5A1945Z Respiratory Ventilation, 24-96 Consecutive Hours (ICD-10-PCS; 2016-07-16)
PROC: 0D9670Z Drainage of Stomach with Drainage Device, Via Natural or Artificial Opening (ICD-10-PCS; 2016-07-16)
PROC: B246YZZ Ultrasonography of Right and Left Heart using Other Contrast (ICD-10-PCS; 2016-07-16)
PROC: 0BH17EZ Insertion of Endotracheal Airway into Trachea, Via Natural or Artificial Opening (ICD-10-PCS; 2016-07-16)
DX: J96.01 Acute respiratory failure with hypoxia (principal); I46.9 Cardiac arrest, cause unspecified; J69.0 Pneumonitis due to inhalation of food and vomit; G93.1 Anoxic brain damage, not elsewhere classified; I50.23 Acute on chronic systolic (congestive) heart failure; I42.8 Other cardiomyopathies; D69.6 Thrombocytopenia, unspecified; N17.9 Acute kidney failure, unspecified; I13.0 Hypertensive heart and chronic kidney disease with heart failure and stage 1 through stage 4 chronic kidney disease, or unspecified chronic kidney disease; E87.2 Acidosis; E11.22 Type 2 diabetes mellitus with diabetic chronic kidney disease; N18.9 Chronic kidney disease, unspecified; J44.9 Chronic obstructive pulmonary disease, unspecified; E78.5 Hyperlipidemia, unspecified; F17.210 Nicotine dependence, cigarettes, uncomplicated; E11.9 Type 2 diabetes mellitus without complications; G25.3 Myoclonus; Z51.5 Encounter for palliative care
CPT/HCPCS: 31500; 36415; 36556; 36600; 51702; 70450; 71010; 80048; 80053; 80076; 80307; 81003; 82308; 82550; 82553; 82803; 82947; 83036; 83605; 83735; 83880; 84100; 84484; 85025; 85610; 85730; 86850; 86900; 86901; 87040; 87086; 93005; 93306; 94002; 94003; 94640; 94760; 96374; 96375; 99291; C9113; C9254; J0171; J0360; J1250; J1650; J1815; J1953; J1956; J2060; J2270; J2920; J2930; J3010; J3490